=== PATIENT | male | born 1960 | race Caucasian/White ===

== ENCOUNTER 2019-03-20 17:01 | Emergency (ER) | payer BC ==
[2019-03-20 17:21] VITALS: BP 109/73
--- NOTE | 2019-03-20 18:35 | UC ---
Respiratory Complaint HPI - HPI Summary HPI Summary: 58 year old male with no PMH no medications presents iwth cough x 3 week. No improvement, non-productive, no fever, chills, no body aches, no GI symptoms. no ear pain, throat pain. cough worse with talking, AC air. Better with warm, scarf. - History of Current Complaint Chief Complaint: UCRespiratory Stated Complaint: cough Time Seen by Provider: 03/20/19 18:14 Hx Obtained From: Patient Onset/Duration: Sudden Onset, Lasting Weeks Timing: Constant Severity Currently: None Pain Intensity: 0 Pain Scale Used: 0-10 Numeric Character: Cough: Nonproductive Aggravating Factors: Exertion, Other - talking - Allergies/Home Medications Allergies/Adverse Reactions: Allergies Allergy/AdvReac Type Severity Reaction Status Date / Time No Known Allergies Allergy Verified 03/20/19 17:20 PMH/Surg Hx/FS Hx/Imm Hx Previously Healthy: Yes - Surgical History Surgical History: None - Family History Known Family History: Positive: Non-Contributory - Social History Alcohol Use: None Substance Use Type: None Smoking Status (MU): Former Smoker When Did the Patient Quit Smoking/Using Tobacco: 37 years ago Review of Systems All Other Systems Reviewed And Are Negative: Yes Constitutional: Positive: Negative Respiratory: Positive: Cough Psychological: Positive: Negative Is Patient Immunocompromised?: No Physical Exam Triage Information Reviewed: Yes Appearance: Well-Appearing, No Pain Distress, Well-Nourished Vital Signs: Initial Vital Signs Temp 98.3 F 03/20/19 17:16 Pulse 71 03/20/19 17:16 Resp 12 03/20/19 17:16 BP 109/73 03/20/19 17:16 Pulse Ox 99 03/20/19 17:16 Vital Signs Reviewed: Yes Eyes: Positive: Conjunctiva Clear ENT: Positive: Pharynx normal, TMs normal - fluid behind R TM, no erythema. Negative: TM bulging, TM dull, TM red Neck: Positive: Supple, Nontender, No Lymphadenopathy Respiratory: Positive: Chest non-tender, Lungs clear, Normal breath sounds, No respiratory distress, No accessory muscle use. Negative: Crackles, Rhonchi, Stridor, Wheezing Cardiovascular: Positive: RRR, No Murmur Neurological Exam: Normal Psychological Exam: Normal Respiratory Course/Dx - Course Course Of Treatment: Acute bronchitis, discussed treatment including steriods, OTCs. Patient chose steroids, increase fluid - Differential Dx/Diagnosis Differential Diagnosis/HQI/PQRI: Bronchitis Provider Diagnosis: Bronchitis Discharge - Sign-Out/Discharge Documenting (check all that apply): Patient Departure All imaging exams completed and their final reports reviewed: No Studies - Discharge Plan Condition: Good Disposition: HOME Prescriptions: methylPREDNISolone [Medrol Dosepak 4 MG*] 1 monik PO .SEE MONIK INSTRUCTION #1 packet Patient Education Materials: Acute Bronchitis (ED) Referrals: No Primary Care Phys,NOPCP [Primary Care Provider] - [facility] [Outside] Additional Instructions: - Medrol dose pack- Steroids to help decrease inflammation, cough response. May stop at any time if side effects are too great - increase fluid intake - Humidifier as needed to help with dryness - Follow up with primary physician within 2-3 days if no improvement - Billing Disposition and Condition Condition: GOOD Disposition: Home
== END 2019-03-20 18:44 | disposition home or self-care (01) ==
LOC: UCEAST 17:01
DX: J40 Bronchitis, not specified as acute or chronic (principal); Z87.891 Personal history of nicotine dependence
CPT/HCPCS: 99202; G0463